=== PATIENT | female | born 1975 | race Caucasian/White ===

== ENCOUNTER 2016-08-08 16:59 | Emergency (ER) | payer MEDICARE ==
[~2016-08-08] VITALS: Ht 160 cm; Wt 53.6 kg
[~2016-08-08 16:59] MED LIST: HYDR-656 PO; PARO40TA47 PO; TRAZ-115 PO
[2016-08-08 17:05] VITALS: BP 136/85; PULSE 61; RESP 18; O2SAT 98
[2016-08-08 17:50] LABS: BASOPHILS % (AUTO) 0.6 % (0-3); EOSINOPHILS % (AUTO) 1.8 % (0-5); Mean Corpuscular Hemoglobin 32.6 pg (27.0-35.0); Mean Corpuscular Volume 92.3 fL (81-100); NEUTROPHILS % (AUTO) 49.8 % (40-74); Platelet Count 216 bil/L (150-400)
--- NOTE | 2016-08-08 18:00 | ED.REPORT ---
HPI-Dyspnea / Wheezing Date of Service Aug 08, 2016 ED Provider: Joaquina Ocampo MD Pt is a 41 y/o female w/ a hx of anxiety, every-day smoking, uncontrolled hyperlipidemia, presenting to the ED w/ her c/o intermittent SOB onset 1 week ago. She was seen last week at Urgent Care for episodes of a ripping/ tearing sensation of her upper back across the shoulder blades and told her symptoms are caused by acute bronchitis and pleurisy. This pain has been causing her trouble breathing. She returns to the ED today due to persistent symptoms. She c/o associated diaphoresis, pleuritic pain. She denies nausea, vomiting, edema. She smokes 1 pack/day for about 20 years. Nursing Notes Stated Complaint: TROUBLE BREATHING,CHEST PAIN Chief Complaint: Respiratory Distress Nursing Notes Reviewed: Yes Allergies: Coded Allergies: No Known Drug Allergies (Verified Allergy, Unknown, 06/22/16) Scheduled Paroxetine (Paxil) 40 Mg Tablet 40 MG PO HS Trazodone (Trazodone) 50 Mg Tablet 50 MG PO HS hydrOXYzine Hcl (HydrOXYzine Hcl) 25 Mg Tablet 25 MG PO TID General Time Seen by MD: 17:59 Chief Complaint Shortness of breath Hx Obtained From: Patient Arrived By: Walk-in Sudden in Onset?: No Onset Occurred: 1 week ago Symptom Duration: Intermittent Location: : Back: Chest left: Chest right Quality: Painful, Pleuritic Severity: Current: Moderate Severity: Maximum: Moderate Recent Healthcare: Recent doctor visit, Previous diagnosis Similar Sx Previous: Yes Risk Factors HEART Score HEART for MACE: Low index of susp (0), Normal ECG (0), Age under 45 (0), 1-2 CAD risk factors (1), < or = to NL troponin (0) HEART for MACE Score: 0-3 (low risk 0.9%-1.7%) Past Medical History Past Medical History Uncontrolled hyperlipidemia Arthritis Spinal stenosis Depression Anxiety Pleurisy Past Surgical History diagnostic hysteroscopy with novasure ablation, bilateral tubal ligation, and diagnostic laparoscopy surgeries on 06/01 Smoking History Current Every Day Smoker Social History Alcohol Use: "Social" Drug Use: Denies drug use Other Social History: Good social support, Ambulatory Status Independent Review of Systems Constitutional: Denies: Chills, Fever Respiratory: Reports: Pleuritic pain, Shortness of breath, Denies: Non-productive cough Cardiovascular: Reports: Chest pain Musculoskeletal: Reports: Back pain Complete sys rev & neg: except as marked. Physical Exam Initial Vital Signs Vital Signs (First) Date Time Temp Pulse Resp B/P Pulse Ox O2 Delivery O2 Flow Rate FiO2 08/08/16 17:05 36.6 61 18 136/85 98 Room Air Initial VS: Reviewed, Vital signs normal Head / Eyes: Atraumatic, Normocephalic, PERRL ENT: Mucous membranes moist, Conjunctiva normal, No scleral icterus Abdomen / GI: Soft, Non-tender, No guarding, No rebound, No distention Extremities: Vascular intact, Neuro intact, No swelling, No tenderness Neurologic: Alert, Oriented, Nonfocal Psychiatric: Mood/affect normal, Behavior normal, Normal thought content Neck: Atraumatic, Supple, No meningismus, Full range of motion Respiratory / Chest: Atraumatic, Breath sounds = bilat, No respiratory distress , No rales, No rhonchi, No retractions Wheezing / Retractions: Positive: Wheezing expiratory (mild, diffuse) Cardiovascular: Heart rate NL, Regular rhythm, Heart sounds NL, No gallop, No murmurs, No rubs, Cap refill not delayed, Peripheral circulation NL Skin: Atraumatic, Color NL, No rash, Warm Color / Condition: Positive: Diaphoresis present (mild) Interpretation & Diagnostics Lab Results Interpretation Result Diagram: 08/08/167 08/08/16 1737 Test 08/08/16 17:37 08/08/16 18:44 08/08/16 20:15 White Blood Count 8.7th/mm3 (3.8-10.1) Red Blood Count 4.69mil/mm3 (3.90-5.20) Hemoglobin 15.3g/dL (12.0-15.6) Hematocrit 43.3% (35.0-46.0) Mean Corpuscular Volume 92.3fL (81-100) Mean Corpuscular Hemoglobin 32.6pg (27.0-35.0) Mean Corpuscular Hemoglobin Concent 35.3% (32.0-37.0) Red Cell Distribution Width 11.5% (12.3-15.4) Platelet Count 216bil/L (150-400) Neutrophils (%) (Auto) 49.8% (40-74) Lymphocytes (%) (Auto) 43.7% (14-46) Monocytes (%) (Auto) 4.0% (4-12) Eosinophils (%) (Auto) 1.8% (0-5) Basophils (%) (Auto) 0.6% (0-3) D-Dimer < 0.5mg/L (<0.50) Sodium Level 141mEq/L (134-144) Potassium Level 4.3mEq/L (3.5-5.2) Chloride Level 102mEq/L (97-108) Carbon Dioxide Level 27mmol/L (18-29) Blood Urea Nitrogen 8mg/dL (6-24) Creatinine 0.60mg/dL (0.57-1.00) Estimat Glomerular Filtration Rate 157mL/min (>59) Glucose Level 88mg/dL (60-99) Calcium Level 9.5mg/dL (8.5-10.1) Total Bilirubin 0.2mg/dL (0.0-1.2) Aspartate Amino Transf (AST/SGOT) 13U/L (0-50) Alanine Aminotransferase (ALT/SGPT) 9U/L (0-32) Alkaline Phosphatase 53U/L (25-150) Pro-B-Type Natriuretic Peptide 46.85pg/mL (0-130) Total Protein 7.2g/dL (6.4-8.4) Albumin 4.7g/dL (3.4-5.0) Hold Flannery Top Tube Received (Received) Hold Urine Received (Received) Troponin T < 0.010ug/L (0.0-0.011) ECG Interpretation ECG Interpretation: Sinus rhythm rate [address] elevations T wave inversion in AvR and V1 Time: 18:22 Interpreted by: ED physician Normal ECG Interpretation: No acute ischemic changes ECG Interpretation: Sinus bradycardia rate [address] elevations T wave inversion in AvR and V1 Time: 20:29 Interpreted by: ED physician Normal ECG Interpretation: No acute ischemic changes X-Ray Chest Interpretation Chest Xray Interpretation: IMPRESSION: No acute cardiopulmonary findings. Dictated by: Lizzeth Martin M.D. on 08/08/2016 at 18:06 Approved by: Lizzeth Martin M.D. on 08/08/2016 at 18:07 View: Portable, AP & lat Interpretation / Wet Read by: Interpret - Radiologist Re-Eval/Medical Decision Med Decision/Clinical Course 41-year-old female with past medical history of high cholesterol and tobacco abuse here with shortness of breath and chest pain. Differential diagnosis includes but is not limited to PE versus ACS versus pneumonia versus anxiety. Patient's d-dimer is negative. She is low risk by heart score, and had 2 negative troponin 3 hours apart. Her EKGs remained unremarkable. She is feeling much better after ibuprofen and was given very strict return precautions. She is amenable to discharge at this time with follow-up with her primary care physician. Re-Evaluation/Progress #1: Time of Eval: 19:20 Patient Status: Condition improved, Moderate relief, Pain improved Re-Evaluation/Progress Note: Pt rechecked. Informed pt of need for 2nd troponin. Re-Evaluation/Progress #2: Time of Eval: 21:13 Patient Status: Condition improved, Moderate relief, Pain improved Re-Evaluation/Progress Note: Pt rechecked. Informed pt of plan for treatment. Pt understands and agrees with plan for treatment. F/U and RTER warnings given. All questions addressed. Counseled Regarding: Diagnosis, Lab results, Need for follow-up, When/why to return to ED Discharge & Departure Impression: Primary Impression: Shortness of breath Additional Impression: Back pain Back pain location: thoracic back pain Chronicity: acute Back pain laterality: bilateral Qualified Code: M54.6 - Pain in thoracic spine Disposition: Home Discharge Condition All VS Reviewed: Yes Condition: Stable Additional Instructions: No dangerous cause for your shortness of breath or back pain was identified. Your labs, chest x-ray, and both EKGs are normal. I recommend you follow-up with your primary care doctor in the next 2 days. Further outpatient treatment may be considered. Return to the emergency department if you experience increased chest pain, increased trouble breathing, profound weakness, high fever, profuse sweating, or for other concerning symptoms. Referrals: Nancy Martini (PCP) Edna Attestation Portions of this note were transcribed by Michael Morales. I, Dr. Ocampo personally performed the history, physical exam and medical decision-making; I reviewed and confirmed the accuracy of the information in the transcribed note. Signed by Edna Neil, 08/08/16 - [id number] copies to: Nancy Martini Rebecca A MD Aug 08, 2016 18:00 MICHAEL MORALES Aug 08, 2016 18:18
--- NOTE | 2016-08-08 18:09 | DRSVH ---
PROCEDURE: X-RAY CHEST, TWO VIEWS ([id number]) INDICATIONS: SHORT OF BREATH TECHNIQUE: 2 views of the chest were acquired. COMPARISON: None. FINDINGS: Surgical changes and devices: None. Lungs and pleura: No pleural effusions or pneumothorax. Lungs are clear. There is likely a nipple shadow projected over the right lung base. Mediastinum: Mediastinal contours are normal. Heart size is normal. Bones and chest wall: No suspicious bony abnormalities. Soft tissues appear unremarkable. IMPRESSION: No acute cardiopulmonary findings. Dictated by: Lizzeth Martin M.D. on 08/08/2016 at 18:06 Approved by: Lizzeth Martin M.D. on 08/08/2016 at 18:07
[2016-08-08 18:54] LABS: TROPONIN T < 0.010 ug/L (0.0-0.011)
[2016-08-08 19:47] VITALS: BP 122/62; PULSE 69; RESP 16; O2SAT 96
[2016-08-08 20:47] VITALS: BP 112/68; PULSE 60; RESP 16; O2SAT 96
[2016-08-08 21:17] VITALS: BP 114/62; PULSE 65; RESP 15; O2SAT 96
== END 2016-08-08 21:17 | disposition home or self-care (01) ==
LOC: SED 16:59
DX: R06.02 Shortness of breath (principal); M54.6 Pain in thoracic spine; R61 Generalized hyperhidrosis; R07.81 Pleurodynia; E78.5 Hyperlipidemia, unspecified; F17.200 Nicotine dependence, unspecified, uncomplicated
CPT/HCPCS: 36415; 71020; 80053; 81025; 83880; 84484; 85025; 85379; 87624; 88175; 90686; 93005; 99285; G0008

== ENCOUNTER 2016-10-13 18:11 | Emergency (ER) | payer MEDICARE ==
[~2016-10-13] VITALS: Ht 160 cm; Wt 56.8 kg
[2016-10-13 18:16] VITALS: BP 152/88; PULSE 67; RESP 16; O2SAT 99
--- NOTE | 2016-10-13 18:57 | ED.REPORT ---
HPI-General Illness Date of Service Oct 13, 2016 ED Provider: Mansoor Crespo DO Pt is a 41 y/o female w/ a hx of prior neck injury presenting to the ED c/o progressively worsening neck pain for 3 weeks. Whenever she turns her head she experiences shooting pain down her left arm. She states she has been supporting the weight of her neck with her thoracic and chest muscles in order to alleviate some of the pain. Pt denies SOB, edema, fever, chills. Nursing Notes Stated Complaint: NECK/HEAD NUMBNESS,PAIN Chief Complaint: Chest Pain Nursing Notes Reviewed: Yes Allergies: Coded Allergies: No Known Drug Allergies (Verified Allergy, Unknown, 10/13/16) Scheduled Paroxetine (Paxil) 40 Mg Tablet 40 MG PO HS Trazodone (Trazodone) 50 Mg Tablet 50 MG PO HS hydrOXYzine Hcl (HydrOXYzine Hcl) 25 Mg Tablet 25 MG PO TID General Time Seen by MD: 18:56 Chief Complaint Other (neck pain) Hx Obtained From: Patient Arrived By: Walk-in Sudden in Onset?: No Onset Occurred: More than a week ago... (3 weeks) Symptom Duration: Since onset Location: : Neck Quality: Painful Severity: Current: Severe Severity: Maximum: Severe Recent Healthcare: Previous diagnosis Similar Sx Previous: Yes Past Medical History Past Medical History Uncontrolled hyperlipidemia Arthritis Spinal stenosis Depression Anxiety Pleurisy Past Surgical History diagnostic hysteroscopy with novasure ablation, bilateral tubal ligation, and diagnostic laparoscopy surgeries on 06/01 Smoking History Current Every Day Smoker Social History Alcohol Use: "Social" Drug Use: Denies drug use Other Social History: Good social support, Ambulatory Status Independent Review of Systems Full Review of Systems Constitutional: Denies: Chills, Fever Respiratory: Denies: Non-productive cough, Shortness of breath Cardiovascular: Reports: Chest pain, Denies: Dyspnea on exertion, Edema, Palpitations GI: Denies: Abdominal pain, Diarrhea, Nausea, Vomiting Musculoskeletal: Reports: Neck pain Neurologic: Reports: Headache Complete sys rev & neg: except as marked. Physical Exam Vital Signs Vital Signs Date Time Temp Pulse Resp B/P Pulse Ox O2 Delivery O2 Flow Rate FiO2 10/13/16 23:28 36.8 50 18 110/60 98 Room Air 10/13/16 18:16 36.0 67 16 152/88 99 Room Air Initial VS: Reviewed, Vital signs normal Head / Eyes: Atraumatic, Normocephalic, PERRL ENT: Mucous membranes moist, Conjunctiva normal, No scleral icterus Cardiovascular: Regular rate & rhythm, Heart sounds normal, Intact distal pulses Extremities: Vascular intact, Neuro intact, No swelling, No tenderness Skin: Warm, Dry, No cyanosis Neurologic: Alert, Oriented, Nonfocal Psychiatric: Mood/affect normal, Behavior normal, Normal thought content General/Constitutional: Awake, Alert, Cooperative, Not toxic appearing Distress / Hydration: Positive: Distress mild Appearance / Presentation: Positive: Uncomfortable Neck: Atraumatic, Supple, No meningismus, Full range of motion Tender over cervical spine as well as diffuse cervical muscles Pain with ROM Respiratory / Chest: Atraumatic, Breath sounds NL, Breath sounds = bilat, No respiratory distress, No rales, No rhonchi, No wheezing, No retractions, No stridor, No chest wall deformity, No crepitus Diffuse anterior chest wall tenderness Upper Extremities Upper Extremity / MS: No erythema, No deformity, Neurologic intact, Vascular intact Bilateral shoulder muscle tenderness Interpretation & Diagnostics Lab Results Interpretation Result Diagram: 10/13/16 1900 10/13/16 1900 Test 10/13/16 18:00 10/13/16 19:00 10/13/16 22:39 D-Dimer < 0.50mg/L FEU (<0.50) White Blood Count 12.8th/mm3 (3.8-10.1) Red Blood Count 4.76mil/mm3 (3.90-5.20) Hemoglobin 15.0g/dL (12.0-15.6) Hematocrit 43.1% (35.0-46.0) Mean Corpuscular Volume 90.5fL (81-100) Mean Corpuscular Hemoglobin 31.5pg (27.0-35.0) Mean Corpuscular Hemoglobin Concent 34.8% (32.0-37.0) Red Cell Distribution Width 12.2% (12.3-15.4) Platelet Count 219bil/L (150-400) Neutrophils (%) (Auto) 56.0% (40-74) Lymphocytes (%) (Auto) 37.0% (14-46) Monocytes (%) (Auto) 5.4% (4-12) Eosinophils (%) (Auto) 1.1% (0-5) Basophils (%) (Auto) 0.2% (0-3) Sodium Level 133mEq/L (134-144) Potassium Level 3.5mEq/L (3.5-5.2) Chloride Level 96mEq/L (97-108) Carbon Dioxide Level 21mmol/L (18-29) Blood Urea Nitrogen 16mg/dL (6-24) Creatinine 0.87mg/dL (0.57-1.00) Estimat Glomerular Filtration Rate 102mL/min (>59) Glucose Level 104mg/dL (60-99) Calcium Level 10.0mg/dL (8.5-10.1) Magnesium Level 2.1mg/dL (1.6-2.6) Total Bilirubin 0.3mg/dL (0.0-1.2) Aspartate Amino Transf (AST/SGOT) 13U/L (0-50) Alanine Aminotransferase (ALT/SGPT) 10U/L (0-32) Alkaline Phosphatase 44U/L (25-150) Total Protein 7.4g/dL (6.4-8.4) Albumin 4.7g/dL (3.4-5.0) Hold Flannery Top Tube Received (Received) Troponin T 0.010ug/L (0.0-0.011) ECG Interpretation Time: 19:44 Interpreted by: ED physician Normal ECG Interpretation: Normal ECG w/ rate of... (63), Normal rate, Normal sinus rhythm, No acute ischemic changes, Normal QRS, Normal axis, Normal intervals, Adequate tracing X-Ray Chest Interpretation Chest Xray Interpretation: IMPRESSION: No acute pulmonary process. Dictated by: Bhavna Juarez M.D. on 10/13/2016 at 19:25 Approved by: Bhavna Juarez M.D. on 10/13/2016 at 19:26 View: Portable, AP & lat Interpretation / Wet Read by: Interpret - Radiologist CT C-Spine Interpretation IMPRESSION: Degenerative changes without visualized fracture. Dictated by: Bhavna Juarez M.D. on 10/13/2016 at 20:25 Approved by: Bhavna Juarez M.D. on 10/13/2016 at 20:26 Study type: CT no contrast Interpretation / Wet Read by: Interpret - Radiologist Re-Eval/Medical Decision Med Decision/Clinical Course I think her pain is all related to cervical radiculopathy. Myocardial infarction, dissection pulmonary emboli all ruled out based on history physical diagnostics and published criteria. Her pain is adequately treated. Symptoms resolved. She felt comfortable being discharged home. CT scan is reassuring aside from degenerative changes. She has follow-up on Sunday with a pain specialist and I concur with this plan. Time of Eval: 21:46 Re-Evaluation/Progress Note: Pt rechecked. Discussed imaging findings. Informed pt of plan for treatment. Pt understands and agrees with plan for treatment. F/U and RTER warnings given. All questions addressed. Counseled Regarding: Diagnosis, Lab results, Need for follow-up, When/why to return to ED Discharge & Departure Primary Impression: Arthritis of neck Disposition: Home Discharge Condition All VS Reviewed: Yes Condition: Stable Patient Instructions: Osteoarthritis (ED) Additional Instructions: Your labs, EKG, and chest x-ray were normal. The heart blood tests and blood clot tests were negative. The CT scan of your neck showed signs of degenerative arthritis without any acute fracture or soft tissue swelling. I suspect you are dealing with spinal stenosis causing cervical radiculopathy. Do not drive tonight. Do not take any sedating medications tonight. Get plenty of rest. Wear the soft collar neck brace. Take your medications as prescribed starting tomorrow. Keep follow-up on Sunday with your pain specialist. Return to the emergency department for new or worsening symptoms. Referrals: Nancy Martini (PCP) Edna Attestation Portions of this note were transcribed by Michael Morales. I, Dr. Crespo personally performed the history, physical exam and medical decision-making; I reviewed and confirmed the accuracy of the information in the transcribed note. Signed by Edna Neil, 10/13/161999 copies to: Nancy Martini Todd P DO Oct 13, 2016 18:57 MICHAEL MORALES Oct 13, 2016 19:44
[2016-10-13 19:10] LABS: BASOPHILS % (AUTO) 0.2 % (0-3); EOSINOPHILS % (AUTO) 1.1 % (0-5); MONOCYTES % (AUTO) 5.4 % (4-12); Mean Corpuscular Hemoglobin 31.5 pg (27.0-35.0); Mean Corpuscular Volume 90.5 fL (81-100); Platelet Count 219 bil/L (150-400)
--- NOTE | 2016-10-13 19:28 | DRSVH ---
PROCEDURE: X-RAY CHEST, TWO VIEWS ([id number]) INDICATIONS: CHEST PAIN TECHNIQUE: 2 views of the chest were acquired. COMPARISON: [facility], CR, XR CHEST 4VW, 08/29/2016, 12:14. FINDINGS: Surgical changes and devices: None. Lungs and pleura: No pleural effusions or pneumothorax. Lungs are clear. Mediastinum: Mediastinal contours are normal. Heart size is normal. Bones and chest wall: No suspicious bony abnormalities. Soft tissues appear unremarkable. IMPRESSION: No acute pulmonary process. Dictated by: Bhavna Juarez M.D. on 10/13/2016 at 19:25 Approved by: Bhavna Juarez M.D. on 10/13/2016 at 19:26
[2016-10-13 19:38] LABS: TROPONIN T < 0.010 ug/L (0.0-0.011)
[2016-10-13 19:45] LABS: Magnesium 2.1 mg/dL (1.6-2.6)
[2016-10-13] MEDS ORDERED: HYDROmorphone 0.5 mg/0.5 mL iSecure Syringe IVPUSH PRN (19:55)
--- NOTE | 2016-10-13 20:28 | DRSVH ---
PROCEDURE: CT CERVICAL SPINE WITHOUT CONTRAST ([id number]) INDICATIONS: severe neck pain with radiculopathy, fall TECHNIQUE: Noncontrast 3 mm thick sections acquired from the skull base to the T4 level. Sagittal and coronal r eformats were then constructed. For radiation dose reduction, the following was used: automated exp osure control, adjustment of mA and/or kV according to patient size. COMPARISON: None. FINDINGS: Image quality: Excellent. Bones: There is reversal cervical curvature with apex at C5-6. Degenerative sclerotic endplates and d isc space narrowing is present at C5-6 L1 with anterior osteophytes. Soft tissues: Prevertebral soft tissues are normal in thickness. No paravertebral hematomas. No ap ical pneumothoraces. IMPRESSION: Degenerative changes without visualized fracture. Dictated by: Bhavna Juarez M.D. on 10/13/2016 at 20:25 Approved by: Bhavna Juarez M.D. on 10/13/2016 at 20:26
[2016-10-13 23:28] VITALS: BP 110/60; PULSE 50; RESP 18; O2SAT 98
== END 2016-10-13 23:31 | disposition home or self-care (01) ==
LOC: SED 18:11
DX: M47.892 Other spondylosis, cervical region (principal); R07.89 Other chest pain; E78.5 Hyperlipidemia, unspecified; F17.200 Nicotine dependence, unspecified, uncomplicated
CPT/HCPCS: 36415; 71020; 72125; 80053; 83735; 84484; 85025; 85378; 93005; 96374; 96375; 99285; J1170; J1885; J3360

== ENCOUNTER 2016-11-06 16:16 | Emergency (ER) | payer MEDICARE ==
[~2016-11-06] VITALS: Ht 160 cm; Wt 57.7 kg
[2016-11-06 16:43] VITALS: BP 137/91; PULSE 89; RESP 19; O2SAT 99
--- NOTE | 2016-11-06 19:49 | ED.REPORT ---
HPI-General Illness Date of Service Nov 06, 2016 ED Provider: Penny Manley MD 41 y/o female with a hx of chronic neck pain, spinal stenosis, sarcoidosis, and arthritis presents to the ED complaining of ongoing neck pain and back pain, with facial numbness that began right prior to arrival. Today the patient developed facial numbness and a throbbing headache. Patient reports having intermittent numbness of her arms, left leg, and neck. She sleeps with her arms elevated under pillows and on a firm mattress. Patient reports having mid back pain that has not been previously evaluated, with the feeling that her back is "unstable". Pt was seen at the ED for similar sx approximately on October 13 after a ground level fall, with CT of her neck performed. Patient also complains of increased urinary incontinence, which is something that has been ongoing for her. Patient reports having uterine fibroids that press on her bladder and low back. The patient has plans to undergo a hysterectomy. The patient states that her incontinence is not daily, but that it always required great effort to empty her bladder. She got a steroid injection in her neck at [facility] pain clinic, with little improvement. She last had an MRI in June of last year. Pt reports she was suddenly taken off her Alprazolam 6 months ago , without taper. She was seen by a psychiatric this morning to discuss restarting an anxiety medication. Pt also reports diaphoresis but denies fever, chills, nausea, vomit or recent illness. Nursing Notes Stated Complaint: NUMBESS ON BACK OF HEAD Chief Complaint: Head, Face, Neck Trauma Nursing Notes Reviewed: Yes Allergies: Coded Allergies: No Known Drug Allergies (Verified Allergy, Unknown, 11/06/16) Scheduled Paroxetine (Paxil) 40 Mg Tablet 40 MG PO HS Trazodone (Trazodone) 50 Mg Tablet 50 MG PO HS hydrOXYzine Hcl (HydrOXYzine Hcl) 25 Mg Tablet 25 MG PO TID General Time Seen by MD: 19:48 Chief Complaint Multip medical complaints Hx Obtained From: Patient Arrived By: Walk-in Sudden in Onset?: No Location: : Head Quality: Painful Radiation: : Back Severity: Current: Moderate Severity: Maximum: Moderate Recent Healthcare: Recent doctor visit Similar Sx Previous: Yes Past Medical History Past Medical History Uncontrolled hyperlipidemia Arthritis Spinal stenosis Depression Anxiety Pleurisy Past Surgical History diagnostic hysteroscopy with novasure ablation, bilateral tubal ligation, and diagnostic laparoscopy surgeries on 06/01 Smoking History Current Every Day Smoker Social History Alcohol Use: "Social" Drug Use: Denies drug use Other Social History: Good social support, Ambulatory Status Independent Review of Systems Full Review of Systems Constitutional: Denies: Chills, Fever Cardiovascular: Reports: Chest pain GI: Denies: Nausea, Vomiting Female: Reports: Incontinence Musculoskeletal: Reports: Back pain, Extremity pain, Neck pain Skin: Reports Diaphoresis Neurologic: Reports: Headache, Numbness Complete sys rev & neg: except as marked. Physical Exam Vital Signs Vital Signs Date Time Temp Pulse Resp B/P Pulse Ox O2 Delivery O2 Flow Rate FiO2 11/06/16 16:43 36.6 89 19 137/91 99 Room Air Initial VS: Reviewed, Vital signs normal Head / Eyes: Atraumatic, Normocephalic, PERRL ENT: Mucous membranes moist, Conjunctiva normal, No scleral icterus Neck: Supple, Non-tender, Full range of motion Respiratory: Breath sounds normal, Clear to auscultation, No respiratory distress Cardiovascular: Regular rate & rhythm, Heart sounds normal, Intact distal pulses Abdomen / GI: Soft, Non-tender, No guarding, No rebound, No distention Skin: Warm, Dry, No cyanosis Psychiatric: Mood/affect normal, Behavior normal, Normal thought content Back: Atraumatic Flank / Spine / Paraspinal: Positive: Flank tender R Spinal tenderness, generalized. Lower Extremity / Pelvis / MS: Neurologic intact, Vascular intact Neurologic: Oriented X3, Speech NL, No motor deficits, No sensory deficits Sensation and strength intact in both upper extremities. Re-Eval/Medical Decision Med Decision/Clinical Course The patient has multiple complaints and has been seen by multiple doctors, she is encouraged to go see a primary care physician. She had prior studies but had a fall and has not had any recent x-rays. She did have a recent CT of her C -spine after her fall. Her symptoms are intermittent and seem to be with positioning of her neck, she is currently neurologically intact. Also concerned the patient could have pound arthritis given her right flank pain. I discussed pain medication with her initially she did not want any pain medication and then she is amenable to a shot of Toradol. The patient left to obtain a urine sample and did not return. It is unclear as to why she left she seemed amenable with the plan of checking a urine and obtaining x-rays of her spine. Time of Eval: 20:30 Re-Evaluation/Progress Note: Patient no longer in room, eloped from department following initial evaluation. Discharge & Departure Primary Impression: Chronic neck and back pain Disposition: AGAINST MEDICAL ADVICE (eloped) Discharge Condition All VS Reviewed: Yes Condition: Stable Referrals: Nancy Martini (PCP) Scribe Attestation Portions of this note were transcribed by Fanta Cartagena and Michelle Anderson I, personally performed the history, physical exam and medical decision-making;I reviewed and confirmed the accuracy of the information in the transcribed note. Signed by Fanta Cartagena and Edna Yeager. 11/07/16 0229 copies to: Nancy Martini Jena M MD Nov 06, 2016 19:49 Fanta Cartagena Nov 06, 2016 20:09 Michelle Anderson Nov 06, 2016 20:59
== END 2016-11-06 20:33 ==
LOC: SED 16:16
DX: M54.2 Cervicalgia (principal); M54.9 Dorsalgia, unspecified; E78.5 Hyperlipidemia, unspecified; F17.200 Nicotine dependence, unspecified, uncomplicated

== ENCOUNTER 2016-12-29 18:18 | Emergency (ER) | payer MEDICARE ==
[~2016-12-29] VITALS: Ht 160 cm; Wt 57.7 kg
[2016-12-29 18:23] VITALS: BP 128/77; PULSE 64; RESP 16; O2SAT 98
--- NOTE | 2016-12-29 18:34 | ED.REPORT ---
HPI-Dental/Mouth Prob Date of Service Dec 29, 2016 ED Provider: Nathan Espinoza MD Pt is a generally healthy 41 y/o female presenting to the ED c/o dental pain secondary to dental fracture of tooth #20 onset 1 month ago. She states she broke her tooth and the nerve is exposed which is causing significant pain. She has been trying salt water rinses without much relief and is now requesting antibiotics. She denies fever, chills, neck swelling, trouble breathing, trouble swallowing. Nursing Notes Stated Complaint: DENTAL PAIN Chief Complaint: Dental Nursing Notes Reviewed: Yes Allergies: Coded Allergies: No Known Drug Allergies (Verified Allergy, Unknown, 12/29/16) Scheduled Paroxetine (Paxil) 40 Mg Tablet 40 MG PO HS Penicillin V Potassium (Penicillin V Potassium) 500 Mg Tablet 500 MG PO QID Trazodone (Trazodone) 50 Mg Tablet 50 MG PO HS hydrOXYzine Hcl (HydrOXYzine Hcl) 25 Mg Tablet 25 MG PO TID General Time Seen by MD: 18:33 Chief Complaint Tooth pain Hx Obtained From: Patient Arrived By: Walk-in Onset Occurred: More than a week ago... (1 month) Symptom Duration: Since onset Quality: Painful Radiation: : Does not radiate Severity: Current: Moderate Severity: Maximum: Moderate Similar Sx Previous: No Past Medical History Past Medical History Uncontrolled hyperlipidemia Arthritis Spinal stenosis Depression Anxiety Pleurisy Past Surgical History diagnostic hysteroscopy with novasure ablation, bilateral tubal ligation, and diagnostic laparoscopy surgeries on 06/01 Smoking History Current Every Day Smoker Social History Alcohol Use: "Social" Drug Use: Denies drug use Other Social History: Good social support, Ambulatory Status Independent Review of Systems Constitutional: Denies: Chills, Fever Ears / Nose / Throat: Reports: Toothache, Denies: Throat pain, Throat swelling, Tongue swelling Respiratory: Denies: Non-productive cough, Shortness of breath GI: Denies: Dysphagia, Nausea, Vomiting Complete sys rev & neg: except as marked. Physical Exam Initial Vital Signs Vital Signs (First) Date Time Temp Pulse Resp B/P Pulse Ox O2 Delivery O2 Flow Rate FiO2 12/29/16 18:23 36.3 64 16 128/77 98 Room Air Initial VS: Reviewed, Vital signs normal Head / Eyes: Atraumatic, Normocephalic, PERRL Respiratory: Breath sounds normal, Clear to auscultation, No respiratory distress Cardiovascular: Regular rate & rhythm, Heart sounds normal, Intact distal pulses Abdomen / GI: Soft, No distention Extremities: Vascular intact, Neuro intact, No swelling Skin: Warm, Dry, No cyanosis Neurologic: Alert, Oriented, Nonfocal Psychiatric: Mood/affect normal, Behavior normal, Normal thought content ENT: Atraumatic, Airway patent, Mucous membranes moist, Pharynx NL, No pooling of secretions, No trismus, No facial swelling Significant dental caries and dental fracture about tooth #20. No surrounding erythema, swelling, or purulence. No evidence of Ger's Angina No stridor No drooling Neck: Atraumatic, Supple, No meningismus, Full range of motion, No adenopathy, No swelling, Non-tender, No midline vertebral tend, No masses General/Constitutional: Awake, Alert, No acute distress, Cooperative, Not toxic appearing Re-Eval/Medical Decision Med Decision/Clinical Course The patient is a 41-year-old female with a history of poor dentition, partial dentures who presents to the emergency department complaining of fractured tooth #20 with associated pain. She is requesting antibiotics. She does not have dental insurance though is working on getting in to see a low cost dentist at the [employer] [facility] or through Sep. Examination consistent with dental fracture and dental caries. Considered other possible causes of dental pain including periapical abscess, gingivitis, Ger's angina , sinusitis, and molar impaction but these are unlikely based on the history and exam. Discussed with the patient the low cost clinic resources available and provided list on discharge. Also reviewed precautions for return to the ED and the importance of f/u with a dentist, which she agreed to do. She was prescribed 7 days of prophylactic penicillin and discharged in good condition. Re-Evaluation/Progress : Time of Eval: 19:19 Re-Evaluation/Progress Note: Pt rechecked. Informed pt of plan for treatment. Pt understands and agrees with plan for treatment. F/U instructions and RTER warnings given. All questions addressed. Counseled Regarding: Diagnosis, Need for follow-up, When/why to return to ED Discharge & Departure Primary Impression: Dental caries Additional Impressions: Fractured tooth Encounter type: initial encounter Fracture type: closed Qualified Code: S02.5XXA - Fracture of tooth (traumatic), initial encounter for closed fracture Pain, dental Disposition: Home Discharge Condition All VS Reviewed: Yes Condition: Stable Patient Instructions: Dental Caries (ED) Additional Instructions: Thank you for seeking care at the emergency room. Our primary goal today in the ED was to evaluate you for any life-threatening conditions. Your evaluation was reassuring. You will be discharged with a prescription for Penicillin. Take this as directed. Take 600 mg Ibuprofen every 6 hours as needed for pain. You should follow-up with a dentist in the next week. Try to make an appointment with [facility]. You should return to the ED immediately if you develop fevers, neck swelling, throat swelling, vomiting, foul taste in mouth, trouble breathing or swallowing , or any other concerning signs or symptoms. Thank you for letting us partake in your care today. Referrals: Tabatha Maria MD (PCP) Scribe Attestation Portions of this note were transcribed by Michael Morales. I, Dr. Espinoza personally performed the history, physical exam and medical decision-making; I reviewed and confirmed the accuracy of the information in the transcribed note. Signed by Edna Neil, 12/29/16 - 1930 copies to: Tabatha Maria MD, Beck O MD Dec 29, 2016 18:34 MICHAEL MORALES Dec 29, 2016 19:12
[2016-12-29] MEDS ORDERED: PENI500T PO (19:08)
[2016-12-29 19:21] VITALS: BP 128/77; PULSE 64; RESP 16; O2SAT 98
== END 2016-12-29 19:23 | disposition home or self-care (01) ==
LOC: SED 18:18
DX: K02.9 Dental caries, unspecified (principal); S02.5XXA Fracture of tooth (traumatic), initial encounter for closed fracture; X58.XXXA Exposure to other specified factors, initial encounter; Y93.9 Activity, unspecified; Y92.89 Other specified places as the place of occurrence of the external cause; Y99.8 Other external cause status; E78.5 Hyperlipidemia, unspecified; F17.200 Nicotine dependence, unspecified, uncomplicated